=== PATIENT | female | born 1990 | race Caucasian/White ===

== ENCOUNTER 2018-10-22 22:32 | Emergency (ER) | payer OTHER ==
[~2018-10-22] VITALS: Ht 175.3 cm; Wt 73.9 kg
[2018-10-22 22:49] VITALS: BP 112/66
--- NOTE | 2018-10-22 22:58 | NUR ---
PT TAKEN TO BED 5
--- NOTE | 2018-10-22 23:10 | NUR ---
Dr. Mathis examining patient.
[2018-10-22] MEDS ORDERED: CYCLOBENZAPRINE 10 MG TAB PO ONE (23:15)
[2018-10-22] MEDS ORDERED: KETOROLAC 30 MG/ML VIAL IM ONE (23:15)
--- NOTE | 2018-10-22 23:15 | NUR ---
PT BIB BOYFRIEND C/O LOWER BACK PAIN. PT STATES SHE WAS GETTING UP FROM SITTING IN A CHAIR, SUDDEN ONSET ON LOWER BACK PAIN X2 DAYS; DENIES INJURY OR TRAUMA; NO SWELLING OR REDNESS TO SIGNT; +TENDERNESS TO RIGHT LOWER BACK. PT STATES 7/10 ACHING PAIN. PT ACTING APPROPRIATLY, SPEAKING IN CLEAR AND COMPLETE SENTENCES. ERMD AWARE OF PT STATUS. PMH: DENIES
--- NOTE | 2018-10-22 23:50 | NUR ---
Patient discharged with v/s stable. Patient acting appropriatly; states pain has decreased to 3/10 at this time and is ready to go home. Written and verbal after care instructions given and explained. Patient alert, oriented and verbalized understanding of instructions. Ambulatory with steady gait. All questions addressed prior to discharge. ID band removed. Patient advised to follow up with PMD. Rx of Ibuprofen and Flexeril given. Patient educated on indication of medication including possible reaction and side effects. Opportunity to ask questions provided and answered.
[2018-10-23 02:00] VITALS: BP 108/67
== END 2018-10-22 23:50 | disposition home or self-care (01) ==
LOC: MED 22:32
DX: S39.012A Strain of muscle, fascia and tendon of lower back, initial encounter (principal); X58.XXXA Exposure to other specified factors, initial encounter; Y93.89 Activity, other specified; Y92.89 Other specified places as the place of occurrence of the external cause; Y99.8 Other external cause status
CPT/HCPCS: 81002; 81025; 96372; 99283; J1885